=== PATIENT | male | born 1980 | race Two or more races ===

== ENCOUNTER 2018-03-19 08:30 | Outpatient (CLI) | payer OTHER | END 2018-03-19 08:41 | disposition home or self-care (01) | LOC: NUCLEAR 08:30 | DX: C43.8 Malignant melanoma of overlapping sites of skin (principal) | CPT/HCPCS: 78816; A9552 ==

== ENCOUNTER 2019-07-01 08:56 | Outpatient (CLI) | payer OTHER | END 2019-07-01 11:38 | disposition home or self-care (01) | LOC: NUCLEAR 08:56 | DX: C43.8 Malignant melanoma of overlapping sites of skin (principal) | CPT/HCPCS: 78816; A9552 ==

== ENCOUNTER 2019-11-17 10:24 | Outpatient (CLI) | payer OTHER | END 2019-11-17 10:27 | disposition home or self-care (01) | LOC: TOM 10:24 | PROVIDERS: ATTEND Internal Medicine Hematology & Oncology | DX: C43.8 Malignant melanoma of overlapping sites of skin (principal) ==

== ENCOUNTER → 2020-02-24 | Emergency (ER) | payer OTHER ==
[~2020-02-24] VITALS: Ht 172.7 cm; Wt 102.1 kg
[~2020-02-24] MED LIST: NORVASC2.5 M1
== END | disposition home or self-care (01) ==
LOC: ER 02:38
DX: S01.521A Laceration with foreign body of lip, initial encounter (principal); S01.522A Laceration with foreign body of oral cavity, initial encounter; M54.2 Cervicalgia; Y04.2XXA Assault by strike against or bumped into by another person, initial encounter; Y93.89 Activity, other specified; Y92.413 State road as the place of occurrence of the external cause; Y99.8 Other external cause status

== ENCOUNTER → 2021-06-10 08:20 | Outpatient (CLI) | payer OTHER | END | disposition home or self-care (01) | LOC: NUCLEAR 08:00 | PROVIDERS: ATTEND Surgery Surgical Oncology | DX: C43.61 Malignant melanoma of right upper limb, including shoulder (principal); C77.3 Secondary and unspecified malignant neoplasm of axilla and upper limb lymph nodes | CPT/HCPCS: 78815; A9552 ==